=== PATIENT | female | born 1985 | race Caucasian/White ===

== ENCOUNTER 2023-06-22 05:34 | Emergency (ER) | payer MEDICAID | END 2023-06-22 06:28 | disposition left against medical advice (07) | LOC: ER 05:34 | DX: S49.82XA Other specified injuries of left shoulder and upper arm, initial encounter (principal); Z53.21 Procedure and treatment not carried out due to patient leaving prior to being seen by health care provider; W19.XXXA Unspecified fall, initial encounter; Y93.89 Activity, other specified; Y92.89 Other specified places as the place of occurrence of the external cause; Y99.8 Other external cause status ==